=== PATIENT | female | born 1945 | race Caucasian/White ===

== ENCOUNTER → 2016-10-14 | Day surgery (SDC) | payer OTHER ==
[~2016-10-14] VITALS: Ht 152.4 cm; Wt 42.4 kg
[~2016-10-14] MED LIST: *RESP: ALBUTEROL 2.5 MG/3 ML NEB (PRN) PERIprocedural Use ONLY NEB ONE; *morphine SULFATE 8 MG/ML PERIprocedure ONLY ONE; ACETAMINOPHEN 1000 MG/100 ML VIAL IV ONE; ACETAMINOPHEN 325MG/HYDROcodone 7.5MG/15ML UDC PO PRN; AMPICILLIN-SULBACTAM INJ 3 GM VIAL ONE; AMPICILLIN/SULBAC 3 GM/NS 100 ML IV SCH; CHLO25TA2 PO; D32000TA PO; DO NOT ADM ANY ANTICOAGULANT DRUGS XX PRN; INSULIN HUMAN REGULAR 1,000 UNITS/10 ML VIAL SQ PRN; LACTATED RINGER'S 1000 ML IV SCH; LISI-515 PO; METOPROLOL TARTRATE 25 MG TAB PO PRN; MICROFIBRILLAR COLLAGEN HEMOSTAT 1 GM PKT ONE; ONDANSETRON HCL 4 MG/2 ML VIAL IV PUSH ONE; POTA10TA8 PO; PROPOFOL 200 MG/20 ML AMP IV ONE; SODIUM CHLORID 0.9% 500 ML IV SCH; SODIUM CHLORIDE 0.9% INJ 100 ML ONE; SUGAMMADEX SODIUM 200 MG/2 ML VIAL IV PUSH ONE; TRAM50TA PO; TRAZ50TA12 PO; UMEC1AER INH; VENTAER INH; Z.0.NO CURRENT MEDS; fentaNYL CITRATE 250 MCG/5 ML AMP ONE
--- NOTE | 2016-10-14 08:05 | EKG ---
Date Performed: 10/14/2016 Time Performed: 07:28:20 PTAGE: 71 years EKG: Sinus rhythm POSSIBLE LEFT ATRIAL ENLARGEMENT BORDERLINE ECG NO PREVIOUS TRACING DOCTOR: Jhonathan Merino Interpretating Date/Time 10/14/2016 08:03:45
[2016-10-14 08:10] VITALS: BP 162/97; PULSE 87; RESP 16; TEMP 98.2; O2SAT 97
[2016-10-14 11:46] VITALS: BP 147/76; PULSE 79; RESP 16; TEMP 97.4; O2SAT 96
--- NOTE | 2016-11-10 23:58 | MP ---
cc: STEPHANIE NI M.D. DATE OF SURGERY: October 14, [address] Stephanie Ni PREOPERATIVE DIAGNOSIS Lesion of right tonsil POSTOPERATIVE DIAGNOSIS: Lesion of right tonsil. OPERATION PERFORMED 1. Tonsillectomy. 2. Direct laryngoscopy with biopsy. INDICATIONS Documented in the history and physical. DESCRIPTION OF OPERATION The patient was taken to OR #2 and placed in the supine position. Following induction of general anesthesia and intubation, a shoulder roll, a Elio head drape and a McIvor mouth gag were put in place. The lesion involving the right tonsil was identified. The tonsil was then removed using the ArthroCare Coblator technique. A few small sites of bleeding were then cauterized using the suction Bovie for hemostasis. The mouth gag was removed and using an anterior commissure scope, hypopharynx and larynx were brought into view. There was no evidence of lesions involving the mucosa, the hypopharynx, pyriform sinuses, the endolarynx, the epiglottis or the esophageal inlet. The scope was then removed and the procedure was terminated. The patient was reversed from anesthesia and taken to recovery in good condition. There were no complications. Blood loss was 20 mL. MD EUNICE Green/ALTAGRACIA /2:28 PM /11:55 PM
== END | disposition home or self-care (01) ==
LOC: HSDC 07:01
PROVIDERS: ATTEND Otolaryngology
DX: D37.05 Neoplasm of uncertain behavior of pharynx (principal); J35.8 Other chronic diseases of tonsils and adenoids; R94.31 Abnormal electrocardiogram [ECG] [EKG]; I10 Essential (primary) hypertension
CPT/HCPCS: 00170; 31535; 42826; 88305; 93005; 94664; J0131; J0295; J2270; J2405; J3010; J7120; J7613; 88304

== ENCOUNTER → 2018-03-17 | Outpatient (CLI) | payer OTHER ==
[~2018-03-17] MED LIST changes: -*RESP: ALBUTEROL 2.5 MG/3 ML NEB (PRN) PERIprocedural Use ONLY NEB ONE; -*morphine SULFATE 8 MG/ML PERIprocedure ONLY ONE; -ACETAMINOPHEN 1000 MG/100 ML VIAL IV ONE; -ACETAMINOPHEN 325MG/HYDROcodone 7.5MG/15ML UDC PO PRN; -AMPICILLIN-SULBACTAM INJ 3 GM VIAL ONE; -AMPICILLIN/SULBAC 3 GM/NS 100 ML IV SCH; -DO NOT ADM ANY ANTICOAGULANT DRUGS XX PRN; -INSULIN HUMAN REGULAR 1,000 UNITS/10 ML VIAL SQ PRN; -LACTATED RINGER'S 1000 ML IV SCH; -METOPROLOL TARTRATE 25 MG TAB PO PRN; -MICROFIBRILLAR COLLAGEN HEMOSTAT 1 GM PKT ONE; -ONDANSETRON HCL 4 MG/2 ML VIAL IV PUSH ONE; -PROPOFOL 200 MG/20 ML AMP IV ONE; -SODIUM CHLORID 0.9% 500 ML IV SCH; -SODIUM CHLORIDE 0.9% INJ 100 ML ONE; -SUGAMMADEX SODIUM 200 MG/2 ML VIAL IV PUSH ONE; -fentaNYL CITRATE 250 MCG/5 ML AMP ONE
== END ==
LOC: HRSP 12:13
PROVIDERS: ATTEND Internal Medicine
DX: J44.9 Chronic obstructive pulmonary disease, unspecified (principal)
CPT/HCPCS: 94060; 94618; 94726; 94729